=== PATIENT | female | born 1970 | race Caucasian/White ===

== ENCOUNTER 2016-10-10 20:47 | Emergency (ER) | payer OTHER ==
[~2016-10-10] VITALS: Ht 172.7 cm; Wt 96.6 kg
[~2016-10-10 20:47] MED LIST: AMARYL4 MG; DESYREL100 MG; FLOMAX PO; GLUCOPHAGE1000 MG PO; JANUVIA50 MG PO; NORCO 5-325 TA1 EACH PO; PERCOCET 5-3251 EACH PO; PHENERGAN 25 MG25 M1 PO; PHENERGAN 25 MG25 MG PO; SIMVASTATIN40 MG; TAMSULOSIN HCL0.4 M1 PER TUBE; ZOFRAN 4 MG ORAL4 MG PO
[2016-10-10] MEDS ORDERED: INVOKAMET 150-1 EACH PO (21:13)
[2016-10-10] MEDS ORDERED: VITAMIN D3400 UNIT PO (21:14)
[2016-10-10 21:28] LABS: ABSOLUTE NEUTROPHILS 5.7 thou/uL (1.4-8.2); BASOPHILS 0.5 % (0.0-2.0); EOSINOPHILS 1.8 % (0.0-3.0); HEMATOCRIT 34.7 % (37.0-47.0); HEMOGLOBIN 10.9 gm/dL (12.0-15.0); MCH 20.1 pg (26.0-34.0); MCHC 31.3 g/dL (28.0-37.0); MCV 64.3 fL (80.0-100.0); MONOCYTES 11.4 % (1.0-8.0); PLATELET COUNT 216 thou/uL (150-400); POLYS 64.3 % (36.0-66.0); RBC 5.39 mil/uL (4.20-5.00); RDW 18.3 % (10.5-14.5); WBC 8.8 thou/uL (4.0-11.0)
[2016-10-10 21:30] LABS: MANUAL DIFF NO
[2016-10-10 21:38] LABS: CREATININE 0.8 mg/dL (0.6-1.0); POTASSIUM 3.9 mmol/L (3.5-5.1)
[2016-10-10] MEDS ORDERED: VALTREX1000 MG PO (21:42)
[2016-10-10] MEDS ORDERED: PREDNISONE 20 M20 MG PO (21:42)
[2016-10-10] MEDS ORDERED: PREDNISONE 10 M10 MG PO (21:52)
[2016-10-10 21:59] VITALS: BP 139/73
[2016-10-11 00:12] LABS: ANISOCYTOSIS 2+; HYPOCHROMASIA 2+; MICROCYTES 2+
== END 2016-10-10 22:00 | disposition home or self-care (01) ==
LOC: ER 20:47
PROVIDERS: Emergency Medicine
DX: G51.0 Bell's palsy (principal); E11.9 Type 2 diabetes mellitus without complications; Z87.442 Personal history of urinary calculi

== ENCOUNTER → 2017-04-19 | Outpatient (CLI) | payer OTHER ==
[~2017-04-19] MED LIST changes: +INVOKAMET 150-1 EACH PO; +PREDNISONE 10 M10 MG PO; +PREDNISONE 20 M20 MG PO; +VALTREX1000 MG PO; +VITAMIN D3400 UNIT PO
== END ==
LOC: RAD 11:52
DX: R09.02 Hypoxemia (principal)

== ENCOUNTER → 2019-02-09 | Outpatient (CLI) | payer OTHER | LOC: MRI 09:48 | DX: M51.26 Other intervertebral disc displacement, lumbar region (principal); M48.062 Spinal stenosis, lumbar region with neurogenic claudication ==

== ENCOUNTER 2019-11-24 07:36 | Emergency (ER) | payer OTHER ==
[~2019-11-24] VITALS: Ht 172.7 cm; Wt 94.8 kg
[2019-11-24 08:17] LABS: ABSOLUTE NEUTROPHILS 3.9 thou/uL (1.4-8.2); BASOPHILS 0.8 % (0.0-2.0); EOSINOPHILS 2.1 % (0.0-3.0); HEMOGLOBIN 11.7 gm/dL (12.0-15.0); LYMPHOCYTES 19.2 % (24.0-44.0); MCH 21.2 pg (26.0-34.0); MCHC 30.9 g/dL (28.0-37.0); MCV 68.5 fL (80.0-100.0); MONOCYTES 7.8 % (1.0-8.0); PLATELET COUNT 196 thou/uL (150-400); POLYS 70.1 % (36.0-66.0); RBC 5.55 mil/uL (4.20-5.00); RDW 18.5 % (10.5-14.5); WBC 5.6 thou/uL (4.0-11.0)
[2019-11-24 08:26] LABS: CALCIUM 8.7 mg/dL (8.5-10.1); CREATININE 0.8 mg/dL (0.6-1.0)
[2019-11-24] MEDS ORDERED: MECLIZINE HCL25 M1 PO (09:58)
[2019-11-24] MEDS ORDERED: ZOFRAN ODT4 MG PO (09:58)
[2019-11-24 10:09] VITALS: BP 123/55
[2019-11-24 10:58] LABS: ANISOCYTOSIS 1+; HYPOCHROMASIA SLIGHT; MICROCYTES 2+
== END 2019-11-24 10:15 | disposition home or self-care (01) ==
LOC: ER 07:36
PROVIDERS: Emergency Medicine
DX: H81.10 Benign paroxysmal vertigo, unspecified ear (principal); E11.9 Type 2 diabetes mellitus without complications; Z79.899 Other long term (current) drug therapy

== ENCOUNTER → 2020-08-17 | Outpatient (CLI) | payer OTHER ==
[~2020-08-17] MED LIST changes: +MECLIZINE HCL25 M1 PO; +ZOFRAN ODT4 MG PO
== END ==
LOC: BC 09:31
PROVIDERS: ATTEND Family Medicine
DX: Z12.31 Encounter for screening mammogram for malignant neoplasm of breast (principal)